=== PATIENT | female | born 1960 | race Caucasian/White ===

== ENCOUNTER 2017-10-08 14:40 | Observation (INO) | payer OTHER ==
[~2017-10-08] VITALS: Ht 154.9 cm; Wt 92.7 kg
[2017-10-08 14:42] VITALS: Ht 154.9 cm; Wt 92.7 kg
[2017-10-08 16:32] LABS: BASOPHIL % 0.7 % (0-2); PLATELET COUNT 326 x10^3mcL (130-400); RED CELL DISTRIBUTION WIDTH 13.6 % (11.5-14.5)
[2017-10-08 16:39] LABS: CALCIUM 8.6 mg/dL (8.5-10.1); CARBON DIOXIDE 26.3 mmol/L (21-32); CREATININE SERUM 1.1 mg/dL (0.6-1.0); POTASSIUM SERUM 3.3 mmol/L (3.5-5.1)
[2017-10-08 16:44] LABS: ALBUMIN 3.5 g/dL (3.4-5.0); BILIRUBIN TOTAL 0.3 mg/dL (0.20-1.00); MAGNESIUM 2.2 mg/dL (1.8-2.4); TOTAL PROTEIN, SERUM 8.2 g/dL (6.4-8.2)
[2017-10-08] MEDS ORDERED: HYZAAR1 TA2 PO (18:34)
[2017-10-08] MEDS ORDERED: AMLODIPINE BESY10 M2 PO (18:34)
[2017-10-08] MEDS ORDERED: POTASSIUM CHLO10 ME2 PO (18:35)
[2017-10-08 19:17] LABS: UA SPECIFIC GRAVITY 1.015 (1.005-1.035); microscopic required? YES; urine erythrocyte TRACE (NEGATIVE)
[2017-10-08 19:25] LABS: AMPHETAMINE QUAL UR NONE DETECTED (NEG <=1000)
[2017-10-08 19:32] VITALS: BP 126/75
[2017-10-08 19:53] LABS: CHOLESTEROL/HDL RATIO 4.2; PHOSPHOROUS 3.7 mg/dL (2.5-4.9)
[2017-10-08 19:57] LABS: T3 TOTAL 1.42 ng/mL
[2017-10-08 19:58] LABS: FREE T4 1.33 ng/dL (0.76-1.46); FREE THYROXINE INDEX 3.4 ug/dL (1.4-4.5); T4(THYROXINE) 11.1 ug/dL (4.7-13.3)
[2017-10-08 21:40] VITALS: BP 134/77
[2017-10-09 05:33] VITALS: BP 100/61
[2017-10-09 06:42] LABS: BASOPHIL % 0.4 % (0-2); PLATELET COUNT 293 x10^3mcL (130-400); RED CELL DISTRIBUTION WIDTH 13.6 % (11.5-14.5)
[2017-10-09 06:43] LABS: CALCIUM 8.1 mg/dL (8.5-10.1); CARBON DIOXIDE 23.9 mmol/L (21-32); CHLORIDE SERUM 107 mmol/L (98-107); CREATININE SERUM 0.6 mg/dL (0.6-1.0); GFR1 > 60 mL/min; GLUCOSE SERUM 117 mg/dL (74-106); MAGNESIUM 2.2 mg/dL (1.8-2.4); PHOSPHOROUS 3.1 mg/dL (2.5-4.9); POTASSIUM SERUM 4.3 mmol/L (3.5-5.1); SODIUM SERUM 140 mmol/L (136-145)
[2017-10-09 07:03] VITALS: BP 108/73
[2017-10-09] MEDS ORDERED: GOOD SENSE ASPI81 M3 PO (09:06)
[2017-10-09] MEDS ORDERED: LIPI10 PO (09:07)
[2017-10-09 10:06] VITALS: BP 106/61; BP 118/75
[2017-10-09 12:17] VITALS: BP 106/61
== END 2017-10-09 13:50 | disposition home or self-care (01) | DRG 74 ==
LOC: ED 14:40 → DU 18:06 → EDBEDREQ 18:08 → DU 19:23
PROVIDERS: Emergency Medicine; Family Medicine
DX: G90.9 Disorder of the autonomic nervous system, unspecified (principal); E87.6 Hypokalemia; E83.51 Hypocalcemia; G93.0 Cerebral cysts; R73.03 Prediabetes; E78.5 Hyperlipidemia, unspecified; E66.9 Obesity, unspecified; Z68.38 Body mass index [BMI] 38.0-38.9, adult
CPT/HCPCS: 83880; 84439; G0378; J3480; J7030; Q0092